=== PATIENT | male | born 1985 | race African-American/Black ===

== ENCOUNTER 2016-08-28 19:29 | Emergency (ER) | payer OTHER ==
[~2016-08-28] VITALS: Ht 198.1 cm; Wt 86.6 kg
[2016-08-28] MEDS ORDERED: HALOPERIDOL LACTATE 5 MG/ML VIAL IM ONE (20:30)
[2016-08-28] MEDS ORDERED: DiphenhydrAMINE HCL 50 MG/ML VIAL IM ONE (20:30)
[2016-08-28] MEDS ORDERED: LORazepam 2 MG/ML VIAL IM ONE (20:30)
[2016-08-28] MEDS ORDERED: LORazepam 2 MG TABLET PO PRN (20:45)
[2016-08-28] MEDS ORDERED: ZOLPIDEM TARTRATE 10 MG TABLET PO PRN (20:45)
[2016-08-28] MEDS ORDERED: HALOPERIDOL 5 MG TABLET PO PRN (20:45)
[2016-08-28 21:26] LABS: BASOPHILS # (AUTO) 0.06 K/uL (0.00-0.20); BASOPHILS % (AUTO) 0.6 % (0.0-2.0); EOSINOPHILS # (AUTO) 0.01 K/uL (0.00-0.70); EOSINOPHILS % (AUTO) 0.13 % (1.0-6.0); HEMATOCRIT 36.3 % (41-53); HEMOGLOBIN 12.2 g/dL (13.5-17.5); LYMPHOCYTES # (AUTO) 0.8 K/uL (1.0-4.8); LYMPHOCYTES % (AUTO) 7.2 % (22.0-44.0); MEAN CORPUSCULAR HGB CONC 33.5 G/dL (31.0-37.0); MEAN CORPUSCULAR VOLUME 104 fL (80-100); MONOCYTES # (AUTO) 0.8 K/uL (0.1-1.0); MONOCYTES % (AUTO) 7.3 % (2.0-9.0); NEUTROPHILS # (AUTO) 8.8 K/uL (1.8-7.7); NEUTROPHILS % (AUTO) 84.7 % (40.0-70.0); PLATELET COUNT (AUTO) 196 K/uL (150-450); RED BLOOD CELL COUNT(AUTO) 3.48 MIL/uL (4.50-5.90); RED CELL DISTRIBUTION WIDTH 13.9 % (11.5-14.5); WHITE BLOOD COUNT (AUTO) 10.3 K/uL (4.5-11.0)
[2016-08-28 21:39] LABS: ANION GAP 8 mmol/L (8-16); CALCIUM, TOTAL 8.4 mg/dL (8.8-10.5); CARBON DIOXIDE 27 mmol/L (22-29); CHLORIDE 108 mmol/L (98-107); GLOMERULAR FILTR. RATE CALC > 60 mL/min (>60); POTASSIUM 3.4 mmol/L (3.5-5.1); SODIUM SERUM 143 mmol/L (136-145); UREA NITROGEN, BLOOD 13 mg/dL (7-18)
[2016-08-28 21:42] LABS: ALANINE AMINOTRANSFERASE 22 U/L (12-78); ALBUMIN 3.7 g/dL (3.4-5.0); ASPARTATE AMINOTRANSFERASE 19 U/L (15-37); BILIRUBIN,TOTAL 0.8 mg/dL (0.1-1.0); TOTAL PROTEIN, SERUM 6.4 g/dL (6.4-8.2)
[2016-08-28 21:53] LABS: RBC MORPHOLOGY COMMENT ABNORMAL RBC MORPH
[2016-08-29 01:56] LABS: APPEARANCE,URINE CLEAR (CLEAR); GLUCOSE, URINE (UA) NEGATIVE (NEGATIVE); KETONES,URINE NEGATIVE (NEGATIVE); LEUKOCYTE ESTERASE ,URINE NEGATIVE (NEGATIVE); OCCULT BLOOD,URINE NEGATIVE (NEGATIVE); PROTEIN,URINE NEGATIVE (NEGATIVE)
[2016-08-29 02:00] VITALS: BP 110/66
[2016-08-29 02:09] LABS: ADD UA MICROSCOPIC NO
== END 2016-08-29 05:54 | disposition short-term general hospital (02) ==
LOC: EEVIPCON 19:32 → EMS 19:32
DX: F29 Unspecified psychosis not due to a substance or known physiological condition (principal); F17.200 Nicotine dependence, unspecified, uncomplicated; F19.90 Other psychoactive substance use, unspecified, uncomplicated
CPT/HCPCS: 36415; 80053; 80307; 81003; 85025; 96372; 99285; G0480; J1200; J1630; J2060

== ENCOUNTER 2017-06-29 19:46 | Emergency (ER) | payer OTHER, MEDICAID ==
[~2017-06-29] VITALS: Ht 193 cm; Wt 79.5 kg
[2017-06-29 20:35] LABS: BASOPHILS % (AUTO) 0.4 % (0.0-2.0); EOSINOPHILS % (AUTO) 0.7 % (1.0-6.0); HEMATOCRIT 38.7 % (41-53); HEMOGLOBIN 13.2 g/dL (13.5-17.5); LYMPHOCYTES # (AUTO) 3.4 K/uL (1.0-4.8); LYMPHOCYTES % (AUTO) 37.1 % (22.0-44.0); MEAN CORPUSCULAR HGB CONC 34.1 G/dL (31.0-37.0); MEAN CORPUSCULAR VOLUME 103 fL (80-100); MONOCYTES # (AUTO) 0.5 K/uL (0.1-1.0); MONOCYTES % (AUTO) 5.6 % (2.0-9.0); NEUTROPHILS # (AUTO) 5.2 K/uL (1.8-7.7); NEUTROPHILS % (AUTO) 56.2 % (40.0-70.0); PLATELET COUNT (AUTO) 260 K/uL (150-450); RED BLOOD CELL COUNT(AUTO) 3.77 MIL/uL (4.50-5.90)
[2017-06-29 20:46] LABS: ANION GAP 7 mmol/L (8-16); CALCIUM, TOTAL 8.9 mg/dL (8.8-10.5); CARBON DIOXIDE 31 mmol/L (22-29); CHLORIDE 104 mmol/L (98-107); GLOMERULAR FILTR. RATE CALC > 60 mL/min (>60); GLUCOSE,RANDOM 121 mg/dL (70-110); POTASSIUM 4.1 mmol/L (3.5-5.1); SODIUM SERUM 142 mmol/L (136-145); UREA NITROGEN, BLOOD 9 mg/dL (7-18)
[2017-06-29 20:52] LABS: ALANINE AMINOTRANSFERASE 25 U/L (12-78); ALBUMIN 4.2 g/dL (3.4-5.0); ALKALINE PHOSPHATASE 42 U/L (46-116); ASPARTATE AMINOTRANSFERASE 20 U/L (15-37); BILIRUBIN,TOTAL 1.2 mg/dL (0.1-1.0); TOTAL PROTEIN, SERUM 7.2 g/dL (6.4-8.2)
[2017-06-29] MEDS ORDERED: DiphenhydrAMINE HCL 50 MG/ML VIAL IM ONE (21:30)
[2017-06-29] MEDS ORDERED: LORazepam 2 MG/ML VIAL IM ONE (21:30)
[2017-06-29] MEDS ORDERED: HALOPERIDOL LACTATE 5 MG/ML VIAL IM ONE (21:30)
[2017-06-30 02:58] VITALS: BP 141/76
== END 2017-06-30 03:04 ==
LOC: EMS 19:47
DX: F29 Unspecified psychosis not due to a substance or known physiological condition (principal)
CPT/HCPCS: 36415; 80053; 85025; 96372; 99285; G0480; J1200; J1630; J2060

== ENCOUNTER 2018-02-16 09:48 | Emergency (ER) | payer MEDICAID, OTHER ==
[~2018-02-16] VITALS: Ht 193 cm; Wt 90.5 kg
[2018-02-16] MEDS ORDERED: LORazepam 2 MG/ML VIAL ONE (12:48)
[2018-02-16] MEDS ORDERED: DiphenhydrAMINE HCL 50 MG/ML VIAL ONE (12:49)
[2018-02-16] MEDS ORDERED: HALOPERIDOL LACTATE 5 MG/ML VIAL ONE (12:49)
[2018-02-16 14:41] LABS: ANION GAP 9 mmol/L (8-16); BASOPHILS % (AUTO) 0.3 % (0.0-2.0); CALCIUM, TOTAL 8.7 mg/dL (8.8-10.5); CARBON DIOXIDE 27 mmol/L (22-29); CHLORIDE 106 mmol/L (98-107); EOSINOPHILS % (AUTO) 0 % (1.0-6.0); GLOMERULAR FILTR. RATE CALC > 60 mL/min (>60); GLUCOSE,RANDOM 82 mg/dL (70-110); HEMATOCRIT 38.6 % (41-53); LYMPHOCYTES % (AUTO) 13.5 % (22.0-44.0); MEAN CORPUSCULAR HEMOGLOBIN 34.5 pg (26.0-34.0); MEAN CORPUSCULAR HGB CONC 33.8 G/dL (31.0-37.0); MEAN CORPUSCULAR VOLUME 102 fL (80-100); MONOCYTES # (AUTO) 0.4 K/uL (0.1-1.0); MONOCYTES % (AUTO) 5.2 % (2.0-9.0); NEUTROPHILS # (AUTO) 6.2 K/uL (1.8-7.7); PLATELET COUNT (AUTO) 246 K/uL (150-450); POTASSIUM 3.8 mmol/L (3.5-5.1); RED BLOOD CELL COUNT(AUTO) 3.78 MIL/uL (4.50-5.90); RED CELL DISTRIBUTION WIDTH 13.5 % (11.5-14.5); SODIUM SERUM 142 mmol/L (136-145); UREA NITROGEN, BLOOD 14 mg/dL (7-18)
[2018-02-16 14:47] LABS: ALANINE AMINOTRANSFERASE 19 U/L (12-78); ALBUMIN 3.8 g/dL (3.4-5.0); ALKALINE PHOSPHATASE 40 U/L (46-116); ASPARTATE AMINOTRANSFERASE 14 U/L (15-37); BILIRUBIN,TOTAL 2.6 mg/dL (0.1-1.0); TOTAL PROTEIN, SERUM 6.3 g/dL (6.4-8.2)
[2018-02-16 16:47] LABS: SALICYLATE < 2.8 mg/dL (2.8-20.0)
[2018-02-16 17:17] LABS: ACETAMINOPHEN < 2 mcg/mL (10-30)
[2018-02-16 19:15] VITALS: BP 106/91
== END 2018-02-16 19:30 | disposition short-term general hospital (02) ==
LOC: EMS 09:49
DX: F29 Unspecified psychosis not due to a substance or known physiological condition (principal); E80.7 Disorder of bilirubin metabolism, unspecified
CPT/HCPCS: 36415; 80053; 85025; 99291; G0480 ×2; G0481; J1200; J1630; J2060

== ENCOUNTER 2019-08-03 12:22 | Emergency (ER) | payer OTHER, MEDICAID ==
[~2019-08-03] VITALS: Ht 200.7 cm; Wt 95.5 kg
[2019-08-03] MEDS ORDERED: LORazepam 2 MG/ML VIAL ONE (14:25)
[2019-08-03] MEDS ORDERED: DiphenhydrAMINE HCL 50 MG/ML VIAL ONE (14:25)
[2019-08-03] MEDS ORDERED: HALOPERIDOL LACTATE 5 MG/ML VIAL ONE (14:25)
[2019-08-03] MEDS ORDERED: HALOPERIDOL LACTATE 5 MG/ML VIAL IM ONE (14:30)
[2019-08-03] MEDS ORDERED: LORazepam 2 MG/ML VIAL IM ONE (14:30)
[2019-08-03] MEDS ORDERED: DiphenhydrAMINE HCL 50 MG/ML VIAL IM ONE (14:30)
[2019-08-03] MEDS ORDERED: HALO50VI4 IM (14:39)
[2019-08-03 15:23] LABS: BASOPHILS % (AUTO) 0.2 % (0.0-2.0); EOSINOPHILS % (AUTO) 0 % (1.0-6.0); HEMATOCRIT 40.1 % (41-53); HEMOGLOBIN 13.2 g/dL (13.5-17.5); LYMPHOCYTES # (AUTO) 1.1 K/uL (1.0-4.8); LYMPHOCYTES % (AUTO) 10.7 % (22.0-44.0); MEAN CORPUSCULAR HEMOGLOBIN 33.5 pg (26.0-34.0); MEAN CORPUSCULAR VOLUME 102 fL (80-100); MONOCYTES # (AUTO) 0.5 K/uL (0.1-1.0); NEUTROPHILS # (AUTO) 8.8 K/uL (1.8-7.7); NEUTROPHILS % (AUTO) 84.1 % (40.0-70.0); PLATELET COUNT (AUTO) 266 K/uL (150-450); RED BLOOD CELL COUNT(AUTO) 3.95 MIL/uL (4.50-5.90); RED CELL DISTRIBUTION WIDTH 13.1 % (11.5-14.5)
[2019-08-03 15:34] LABS: ANION GAP 13 mmol/L (8-16); CALCIUM, TOTAL 9.2 mg/dL (8.8-10.5); CARBON DIOXIDE 23 mmol/L (22-29); CHLORIDE 106 mmol/L (98-107); CREATININE 0.88 mg/dL (0.60-1.30); GLOMERULAR FILTR. RATE CALC > 60 mL/min (>60); GLUCOSE,RANDOM 104 mg/dL (70-110); POTASSIUM 3.2 mmol/L (3.5-5.1); SODIUM SERUM 142 mmol/L (136-145); UREA NITROGEN, BLOOD 14 mg/dL (7-18)
[2019-08-03 15:40] LABS: ALANINE AMINOTRANSFERASE 17 U/L (12-78); ALBUMIN 4.2 g/dL (3.4-5.0); ALKALINE PHOSPHATASE 46 U/L (46-116); ASPARTATE AMINOTRANSFERASE 12 U/L (15-37); BILIRUBIN,TOTAL 1.6 mg/dL (0.1-1.0); TOTAL PROTEIN, SERUM 6.8 g/dL (6.4-8.2)
[2019-08-03] MEDS ORDERED: POTASSIUM CHLORIDE 20 MEQ ER TABLET PO ONE (18:45)
[2019-08-03] MEDS ORDERED: HALOPERIDOL 5 MG TABLET PO PRN (19:00)
[2019-08-03] MEDS ORDERED: LORazepam 2 MG TABLET PO PRN (19:00)
[2019-08-03] MEDS ORDERED: ZOLPIDEM TARTRATE 10 MG TABLET PO PRN (19:00)
[2019-08-03 23:42] VITALS: BP 128/74
== END 2019-08-04 00:11 | disposition short-term general hospital (02) ==
LOC: EMS 12:23
DX: F25.9 Schizoaffective disorder, unspecified (principal); E87.6 Hypokalemia; F17.200 Nicotine dependence, unspecified, uncomplicated
CPT/HCPCS: 36415; 80053; 85025; 96372; 99291; G0480; J1200; J1630; J2060

== ENCOUNTER 2019-08-10 13:45 | Emergency (ER) | payer OTHER, MEDICAID ==
[~2019-08-10] VITALS: Ht 193 cm; Wt 100.0 kg
[~2019-08-10 13:45] MED LIST: HALO50VI4 IM
[2019-08-10] MEDS ORDERED: CLON.5 PO (17:34)
[2019-08-10 17:35] LABS: BASOPHILS % (AUTO) 0.1 % (0.0-2.0); EOSINOPHILS % (AUTO) 0.1 % (1.0-6.0); HEMATOCRIT 38.4 % (41-53); HEMOGLOBIN 12.8 g/dL (13.5-17.5); LYMPHOCYTES # (AUTO) 0.7 K/uL (1.0-4.8); LYMPHOCYTES % (AUTO) 7.2 % (22.0-44.0); MEAN CORPUSCULAR HEMOGLOBIN 34.1 pg (26.0-34.0); MEAN CORPUSCULAR HGB CONC 33.2 G/dL (31.0-37.0); MEAN CORPUSCULAR VOLUME 103 fL (80-100); MONOCYTES # (AUTO) 0.6 K/uL (0.1-1.0); MONOCYTES % (AUTO) 6.1 % (2.0-9.0); NEUTROPHILS # (AUTO) 8.3 K/uL (1.8-7.7); PLATELET COUNT (AUTO) 251 K/uL (150-450); RED BLOOD CELL COUNT(AUTO) 3.74 MIL/uL (4.50-5.90); RED CELL DISTRIBUTION WIDTH 12.8 % (11.5-14.5)
[2019-08-10 17:38] LABS: NEUTROPHILS % (AUTO) 86.5 % (40.0-70.0)
[2019-08-10 17:44] LABS: ANION GAP 8 mmol/L (8-16); CALCIUM, TOTAL 8.6 mg/dL (8.8-10.5); CARBON DIOXIDE 26 mmol/L (22-29); CHLORIDE 108 mmol/L (98-107); CREATININE 0.66 mg/dL (0.60-1.30); GLOMERULAR FILTR. RATE CALC > 60 mL/min (>60); GLUCOSE,RANDOM 106 mg/dL (70-110); POTASSIUM 4.1 mmol/L (3.5-5.1); SODIUM SERUM 142 mmol/L (136-145); UREA NITROGEN, BLOOD 9 mg/dL (7-18)
[2019-08-10 17:49] LABS: ALANINE AMINOTRANSFERASE 21 U/L (12-78); ALBUMIN 3.9 g/dL (3.4-5.0); ALKALINE PHOSPHATASE 46 U/L (46-116); ASPARTATE AMINOTRANSFERASE 12 U/L (15-37); BILIRUBIN,TOTAL 1.5 mg/dL (0.1-1.0); TOTAL PROTEIN, SERUM 6.6 g/dL (6.4-8.2)
[2019-08-10 18:04] LABS: AMPHET/METH SCREEN,URINE NEGATIVE (NEGATIVE); BARBITURATE SCREEN, URINE NEGATIVE (NEGATIVE); BENZODIAZEPINES SCREEN,URINE NEGATIVE (NEGATIVE); CANNABINOID SCREEN,URINE POSITIVE (NEGATIVE); COCAINE SCREEN,URINE NEGATIVE (NEGATIVE); METHADONE SCREEN, URINE NEGATIVE (NEGATIVE); OPIATE SCREEN,URINE NEGATIVE (NEGATIVE)
[2019-08-10 18:08] LABS: PHENCYCLIDINE SCREEN,URINE NEGATIVE (NEGATIVE)
[2019-08-10 18:11] LABS: ACETAMINOPHEN < 2 mcg/mL (10-30); SALICYLATE < 2.8 mg/dL (2.8-20.0)
[2019-08-10 21:32] VITALS: BP 118/70
== END 2019-08-10 23:43 | disposition short-term general hospital (02) ==
LOC: EMS 13:46
DX: F32.9 Major depressive disorder, single episode, unspecified (principal); F17.290 Nicotine dependence, other tobacco product, uncomplicated; Z79.899 Other long term (current) drug therapy
CPT/HCPCS: 36415; 80053; 80307; 85025; 99285; G0480 ×2; G0481

== ENCOUNTER 2022-04-18 13:26 | Inpatient (IN) | payer OTHER, MEDICAID ==
[~2022-04-18] VITALS: Ht 190.5 cm; Wt 86.5 kg
[~2022-04-18 13:26] MED LIST changes: +CLON-592 PO; +HALO50VI29 IM; -HALO50VI4 IM
[2022-04-18 14:27] LABS: BASOPHILS % (AUTO) 0.3 % (0.0-2.0); EOSINOPHILS % (AUTO) 0.1 % (1.0-6.0); HEMATOCRIT 37.5 % (41-53); HEMOGLOBIN 12.6 g/dL (13.5-17.5); LYMPHOCYTES # (AUTO) 1.2 K/uL (1.0-4.8); LYMPHOCYTES % (AUTO) 10.4 % (22.0-44.0); MEAN CORPUSCULAR HEMOGLOBIN 34.8 pg (26.0-34.0); MEAN CORPUSCULAR HGB CONC 33.7 G/dL (31.0-37.0); MEAN CORPUSCULAR VOLUME 103 fL (80-100); MONOCYTES # (AUTO) 0.9 K/uL (0.1-1.0); MONOCYTES % (AUTO) 8.4 % (2.0-9.0); NEUTROPHILS % (AUTO) 80.8 % (40.0-70.0); PLATELET COUNT (AUTO) 239 K/uL (150-450); RED BLOOD CELL COUNT(AUTO) 3.64 MIL/uL (4.50-5.90); RED CELL DISTRIBUTION WIDTH 13.1 % (11.5-14.5)
[2022-04-18 14:38] LABS: ANION GAP 9 mmol/L (8-16); CARBON DIOXIDE 26 mmol/L (22-29); CHLORIDE 103 mmol/L (98-107); CREATININE 1.16 mg/dL (0.60-1.30); GLOMERULAR FILTR. RATE CALC > 60 mL/min (>60); GLUCOSE,RANDOM 100 mg/dL (70-110); POTASSIUM 3.5 mmol/L (3.5-5.1); SODIUM SERUM 138 mmol/L (136-145); UREA NITROGEN, BLOOD 18 mg/dL (7-18)
[2022-04-18 14:44] LABS: ALANINE AMINOTRANSFERASE 49 U/L (12-78); ALBUMIN 4.3 g/dL (3.4-5.0); ALKALINE PHOSPHATASE 41 U/L (46-116); ASPARTATE AMINOTRANSFERASE 47 U/L (15-37); BILIRUBIN,TOTAL 2.8 mg/dL (0.1-1.0); TOTAL PROTEIN, SERUM 6.6 g/dL (6.4-8.2)
[2022-04-18 14:57] LABS: COVID AG,FIA SOURCE NASOPHARYNGEAL
[2022-04-18] MEDS ORDERED: LORazepam 2 MG/ML VIAL IM ONE (16:00)
[2022-04-18] MEDS ORDERED: HALOPERIDOL LACTATE 5 MG/ML VIAL IM ONE (16:00)
[2022-04-18] MEDS ORDERED: DiphenhydrAMINE HCL 50 MG/ML VIAL IM ONE (16:00)
[2022-04-18] MEDS ORDERED: OLANZapine 5 MG RAPDIS TABLET PO PRN (18:00)
[2022-04-18] MEDS ORDERED: LORazepam 2 MG TABLET PO PRN (18:00)
[2022-04-18] MEDS ORDERED: ZOLPIDEM TARTRATE 10 MG TABLET PO PRN (18:00)
[2022-04-18] MEDS ORDERED: GuaiFENesin/D-METHORPHAN [SUGAR-FREE] 200-20MG/10 ML SYRUP UDCUP PO PRN (20:45)
[2022-04-18] MEDS ORDERED: MAG HYDROX/AL HYDROX/SIMETH ES 30 ML SUSPENSION UDCUP PO PRN (20:45)
[2022-04-18] MEDS ORDERED: ACETAMINOPHEN 325 MG TABLET PO PRN (20:45)
[2022-04-18] MEDS ORDERED: MAGNESIUM HYDROXIDE SUSPENSION 30 ML UDCUP PO PRN (20:45)
[2022-04-18] MEDS ORDERED: TUBERCULIN, PURIFIED PROTEIN DERIVATIVE 5 TU/0.1 ML SYRINGE ID ONE (20:45)
[2022-04-18] MEDS ORDERED: PROMETHAZINE HCL 25 MG TABLET PO PRN (20:45)
[2022-04-18] MEDS ORDERED: HydrOXYzine PAMOATE 50 MG CAPSULE PO PRN (20:45)
[2022-04-18] MEDS ORDERED: INFLUENZA VIRUS VACCINE QVS 2022-23 (6MO+)/PF 60 MCG/0.5 ML SYRINGE IM. ONE (21:00)
[2022-04-18] MEDS: DIVALPROEX SODIUM 500 MG ER TABLET PO SCH (23:23)
[2022-04-18] MEDS: OLANZapine 5 MG RAPDIS TABLET PO SCH (23:23)
[2022-04-18] MEDS: MELATONIN 5 MG TABLET PO SCH (23:23)
[2022-04-19 00:57] VITALS: BP 116/78
[2022-04-19] MEDS: NALTREXONE HCL 50 MG TABLET PO SCH (09:00)
[2022-04-19] MEDS: OMEGA-3/DHA/EPA/FISH OIL 1,000 MG CAPSULE PO SCH (09:00)
[2022-04-19] MEDS: MULTIVITAMINS WITH MINERALS, THERAPEUTIC TABLET PO SCH (09:00)
[2022-04-19] MEDS: THIAMINE 100 MG TABLET PO SCH ×2 (09:00→17:00)
[2022-04-19] MEDS: FOLIC ACID 1 MG TABLET PO SCH (09:00)
[2022-04-19 13:14] VITALS: BP 147/77
[2022-04-19 20:19] VITALS: BP 108/65
[2022-04-19] MEDS: DIVALPROEX SODIUM 500 MG ER TABLET PO SCH (21:00)
[2022-04-19] MEDS: MELATONIN 5 MG TABLET PO SCH (21:00)
[2022-04-19] MEDS: OLANZapine 5 MG RAPDIS TABLET PO SCH (21:00)
[2022-04-20 08:28] VITALS: BP 112/62
[2022-04-20] MEDS: FOLIC ACID 1 MG TABLET PO SCH (09:00)
[2022-04-20] MEDS: THIAMINE 100 MG TABLET PO SCH (09:00)
[2022-04-20] MEDS: OMEGA-3/DHA/EPA/FISH OIL 1,000 MG CAPSULE PO SCH (09:00)
[2022-04-20] MEDS: NALTREXONE HCL 50 MG TABLET PO SCH (09:00)
[2022-04-20] MEDS: MULTIVITAMINS WITH MINERALS, THERAPEUTIC TABLET PO SCH (09:00)
[2022-04-20] MEDS ORDERED: DIVA-80 PO (11:31)
[2022-04-20] MEDS ORDERED: NALT50TA PO (11:31)
[2022-04-20] MEDS ORDERED: OLAN5TAB94 PO (11:31)
[2022-04-20] MEDS ORDERED: OMEG-135 PO (11:31)
[2022-04-20] MEDS ORDERED: MELA5TAB40 PO (11:31)
== END 2022-04-20 13:00 | DRG 885 ==
LOC: EMS 13:26 → B3A 18:17
PROVIDERS: ADMIT Psychiatry & Neurology Psychiatry; ATTEND Psychiatry & Neurology Psychiatry
DX: F25.9 Schizoaffective disorder, unspecified (principal); Z20.822 Contact with and (suspected) exposure to COVID-19; Z55.9 Problems related to education and literacy, unspecified; Z59.9 Problem related to housing and economic circumstances, unspecified; Z63.9 Problem related to primary support group, unspecified; Z65.3 Problems related to other legal circumstances; Z78.1 Physical restraint status; Z91.14 Patient's other noncompliance with medication regimen; Z91.199 Patient's noncompliance with other medical treatment and regimen due to unspecified reason; Z91.51 Personal history of suicidal behavior
CPT/HCPCS: 80053; 85025; 99291; G0480; J1200; J1630; J2060; Q9967